=== PATIENT | female | born 1945 | race African-American/Black ===

== ENCOUNTER 2016-06-16 10:25 | Emergency (ER) ==
--- NOTE | 2016-06-16 13:07 | PROVIDER DOCUMENTATION ---
HPI-General Adult - General Chief Complaint: B/P Problems Stated Complaint: B/P PROBLEMS Time Seen by Provider: 06/16/16 11:26 Source: patient Allergies/Adverse Reactions: Patient Allergies Allergy/AdvReac Type Severity Reaction Status Date / Time No Known Allergies Allergy Verified 07/26/14 10:57 Home Medications: Home Medication List Medication Instructions Recorded Confirmed Last Taken Type Amlodipine Besylate/Benazepril 10 - 20 mg PO DAILY 01/19/12 07/26/14 07/25/14 09 :00 History [Lotrel 10-20 mg Capsule] Clonidine [Catapres] 0.1 mg PO BID 01/19/12 07/26/14 07/25/14 09:00 History Glyburide/Metformin HCl 2.5 - 500 mg PO DAILY 01/19/12 07/26/14 07/25/14 09:00 History [Glyburide-Metformin 2.5-500 mg] Montelukast Sodium [Singulair] 10 mg PO DAILY 01/19/12 07/26/14 07/25/14 09:00 History Ketorolac [Toradol] 10 mg PO Q6H PRN PRN #20 tablet 07/26/14 Unknown Rx - History of Present Illness -Gen Adult Nature of Presenting Problems: 70 yo female presents to ER with c/o high blood pressure since yesterday. She states that her blood pressure normally stays around 140/90. She takes lotrel 10/20 and clonidine 0.1mg TID but she has already taken all of her clonidine today and the blood pressure is still elevated. She states she has a slight headache d/t blood pressure. Location of Pain/Injury: reports: head Pain Radiation: reports: no radiation Quality of Pain: reports: aching Severity: reports: mild Onset/Duration: reports: 24 hours ago Timing: reports: intermittent Context/Activities at Onset: reports: none Modifying Factors: improves with: nothing Associated Symptoms: reports: headaches Similar Symptoms Previously?: Yes Recently seen or treated by another doctor?: No Review of Systems - Adult - REVIEW OF SYSTEMS - ADULT Constitutional: reports: no symptoms reported Eyes: reports: no symptoms reported Ears, Nose, Mouth & Throat: reports: no symptoms reported Cardiovascular: reports: no symptoms reported Respiratory: reports: no symptoms reported Gastrointestinal: reports: no symptoms reported Genitourinary: reports: no symptoms reported Musculoskeletal: reports: no symptoms reported Integumentary: reports: no symptoms reported Neurological: reports: see HPI, headache/migraines Psychiatric: reports: no symptoms reported Endocrine: reports: no symptoms reported Hematologic/Lymphatic: reports: no symptoms reported Allergic/Immunologic: reports: no symptoms reported All Other Systems: Reviewed and Negative Past History - Adult - PAST MEDICAL HISTORY-ADULT Review of Records: reports: Old Records Reviewed, Nursing Assessment Review, Medications Reviewed, Social history reviewed & non-contributory. Major Childhood Illnesses: reports: denies history Cardiovascular: reports: HTN Respiratory: reports: denies history Gastrointestinal: reports: denies history Obstetrical/Gynecological: reports: denies history Genitourinary: reports: denies history Musculoskeletal: reports: denies history Neurological: reports: denies history Psychiatric: reports: anxiety Endocrine/Immune: reports: Diabetes Other Conditions: reports: denies history - PRIOR SURGERIES/PROCEDURES Surgical/Procedure History: reports: cholecystectomy, hysterectomy, BTL, other ( carpal tunnel) - IMMUNIZATION STATUS Childhood Immunizations: See Nurse Assessment Flu Vaccine: See Nurse Assessment - FAMILY HISTORY Family History: reviewed, not pertinent - SOCIAL HISTORY Smoking: denies, non-smoker Substance Use: none/never, denies Alcohol Use Frequency: never Living Situation: family Physical Exam-General - PHYSICAL EXAM-ADULT Initial Vital Signs Reviewed: Yes - CONSTITUTIONAL General Appearance: appears well, alert, no apparent distress - EYES Eyes: PERRL/EOMI - HEAD, EARS, NOSE, MOUTH & THROAT HENMT: normocephalic/atraumatic, moist mucous membranes, normal ENT inspection - RESPIRATORY Respiratory: lungs clear, normal breath sounds, no respiratory distress - CARDIOVASCULAR Cardiovascular: normal peripheral pulses, regular rate, rhythm - GASTROINTESTINAL (ABDOMEN) Abdominal Exam: normal bowel sounds, non tender, soft - MUSCULOSKELETAL Back Exam: normal inspection Extremity: non-tender, normal gait, normal inspection Peripheral Pulses: radial (R): 2+, radial (L): 2+, dorsalis-pedis (R): 2+, dorsalis-pedis (L): 2+ - SKIN Integumentary: normal color, normal turgor, warm/dry - NEUROLOGIC Neurologic: grossly normal - PSYCHIATRIC Psych/Mental Status: normal mood/affect, normal thought content, normal thought process, oriented x 3 Progress - PLAN OF CARE/RESULTS Progress/Plan/Lab Results: 1315-Discussed patient case with Dr. Hayes and at this time there is no need to give any more blood pressure medication since her blood pressure has improved. 1320-Discussed dx/discharge and follow up instructions; she verbalized understanding. Patient refused any medication for headache stating it was very mild. Vital Signs - 24 hr 06/16/16 06/16/16 06/16/16 10:33 12:25 12:30 Temperature 97.9 F Pulse Rate 96 H Respiratory 18 Rate Blood Pressure 175/95 207/101 202/97 O2 Sat by Pulse 100 Oximetry 06/16/16 06/16/16 06/16/16 12:45 13:03 13:12 Temperature Pulse Rate Respiratory Rate Blood Pressure 164/80 171/79 162/95 O2 Sat by Pulse Oximetry 06/16/16 13:14 Temperature 99.1 F Pulse Rate 70 Respiratory 18 Rate Blood Pressure 162/95 O2 Sat by Pulse 98 Oximetry - REASSESSMENT Reassessment #1 Time Reassessed: 13:10 (B/P 164/85 slight H/A but she declined medication for headache) Status: improving Departure - Departure Time of Disposition Order: 13:10 DIAGNOSIS: Hypertension Qualifiers: Hypertension type: essential hypertension Qualified Code(s): I10 - Essential ( primary) hypertension Headache Qualifiers: Headache type: other headache syndrome Qualified Code(s): G44.89 - Other headache syndrome Disposition: HOME 01 Certified Medical Emergency: Emergent Condition: Good Additional Instructions: Follow up with primary care doctor Sunday. Take home medications as prescribed. May have an extra clonidine in the evening; take blood pressure first. ED Follow Up Instructions: You have been treated by a care provider in the Emergency Department. These instructions are being provided to you so you can have an understanding of how to care for yourself upon discharge. Upon discharge from the Emergency Department, you are responsible for making arrangements for follow-up care by a physician of your choice. Take all prescribed medications as directed. Return to the Emergency Department immediately for any new or worsening symptoms. You may call the Physician Referral phone number at [phone] to obtain a list of Physicians who are taking new patients. Referrals: Raza Ospina MD [Primary Care Provider] - Instructions: Migraine Headache, [id number], Hypertension, [id number] Attestation - Physician/ DOMENIC Attestation Patient care was provided by Advanced Practice Provider:: Yes Advanced Practice Provider:: Maren Garcia Advanced Practice Provider documentation review:: The Mid-level provider documentation, treatment plan and medical decision making was reviewed by the physician who agrees with all treatment and medical decision making by the MLP.
[2016-06-16 13:12] VITALS: BP 162/95
== END 2016-06-16 13:18 | disposition home or self-care (01) ==
LOC: P.ED 10:25
DX: R51 Headache (principal); I10 Essential (primary) hypertension; E11.9 Type 2 diabetes mellitus without complications; Z79.899 Other long term (current) drug therapy
CPT/HCPCS: 99282